=== PATIENT | male | born 1970 | race Caucasian/White ===

== ENCOUNTER 2017-02-06 20:21 | Emergency (ER) | payer BC ==
--- NOTE | 2017-02-06 23:07 | ED NURSING NOTES ---
Clinical Report - Nurses Formerly [facility] [address] [place] [address] 02/06/2017 20:24 Patient: LAURO YOUNG TRIAGE Triage time 20:49. Acuity: LEVEL 4. Chief Complaint: INJURY TO LEFT HAND. INJURY TO THE LEFT THUMB (Cut L thumb with knife.). Alert. No acute distress. SEPSIS SCREEN: Sepsis Screen: negative. Negative (no infection suspected/documented). --20:54 Cisco Darling R.N. 20:48 02/06/17. BP: 116/80 (regular adult cuff) taken on the left arm, via an automated monitor, while sitting. HR: 63 (normal rate). RR: 16 (regular, unlabored and normal). O2 saturation: 97% on room air. Temp: 98.5 F (oral). Pain level now: 0/10. --20:54 Cisco Darling R.N. Weight: 122.4 kg stated. Height/Length: 71 inches Per Patient. BMI: 37.7. --20:48 Cisco Darling R.N. Medications Atenolol Oral. --20:50 Cisco Darling R.N. Triamterene-HCTZ Oral. --20:50 Cisco Darling R.N. Aspirin Oral. --20:50 Cisco Darling R.N. Losartan Potassium Oral. --20:50 Cisco Darling R.N. Potassium Oral. --20:50 Cisco Darling R.N. Ranitidine HCl Oral. --20:50 Cisco Darling R.N. Multivitamins Oral. --20:50 Cisco Darling R.N. Medication/allergy information source: the patient. --20:54 Cisco Darling R.N. Allergies LIsinopril. --20:50 Cisco Darling R.N. Bee stings. --20:50 Cisco Darling R.N. History Arrived by private vehicle. Historian: patient. Accompanied by son. Primary physician (Katia Coto DO). The patient sustained a laceration from a knife. Treatment OPERATING ROOM SCHEDULER: Applied bandage. PAST MEDICAL HX: Tetanus status: unknown. SOCIAL HX: Never smoker. No alcohol use or drug use. He has not traveled outside the [place] The patient was not exposed to MRSA. ABUSE ASSESSMENT: Abuse assessment: The patient was asked "Do you feel safe in your home?" and "Has anyone hurt you or threatened to hurt you?". No report of abuse. SELF HARM ASSESSMENT: A self harm assessment was performed. The patient answered "no" to the question "Do you have thoughts of harming or killing yourself?" and "Have you recently had thoughts about harming or killing others?". FALL RISK ASSESSMENT: Fall risk assessment completed. No fall risk identified. NUTRITIONAL RISK ASSESSMENT: The nutritional risk assessment revealed no deficiencies. LEARNING NEEDS ASSESSMENT: The learning needs assessment revealed no barriers. FUNCTIONAL ASSESSMENT: Functional assessment performed: wears glasses- this visual impairment is an ongoing problem. SKIN INTEGRITY ASSESSMENT: Skin integrity risk assessment completed. No skin integrity risk identified. --20:54 Cisco Darling R.N. PROBLEMS: Hypertension. --20:51 Cisco Darling R.N. ADDITIONAL SURGERIES: Bowel Resection . Hernia Repair. Laminectomy. Meniscus Repair. --20:51 Cisco Darling R.N. Assessment GENERAL / NEURO / PSYCH: Alert. Oriented X 4. Appears in no acute distress. Hamilton Coma Scale: 15- eyes open spontaneously (4); best verbal response- oriented x 4 (5); best motor response- obeys commands (6). Patient appears calm and cooperative. RESPIRATORY: No respiratory distress. Respirations not labored. SKIN: Skin is warm and dry. --20:54 Cisco Darling R.N. Interventions ID band on patient. To waiting room. --20:54 Cisco Darling R.N. PHYSICAL ASSESSMENT 21:58 02/06/17. Ambulatory to room. GENERAL / NEURO / PSYCH: Oriented X 4. Alert. Appears in no acute distress. EXTREMITIES: Capillary refill is less than 2 seconds in the extremities. Extremity pulses are within normal limits. Extremities exhibit normal ROM. Left thumb: tenderness and subcutaneous 1.0 cm laceration with controlled bleeding. SKIN: Skin is warm and dry. --21:58 Latrice Thacker R.N. NURSING PROGRESS NOTES 21:59 02/06/17. Two patient identifiers checked. Call light placed in reach. Side rails up x 1. Bed placed in lowest position. Brakes of bed on. Patient ready for evaluation- chart flagged and notification provided. --21:59 Latrice Thacker R.N. 22:06 02/06/2017 LET Topical Topical Solution 1 application. Placed on a cotton ball and secured with tape. Allergies verified and confirmed 5 rights. --22:06 Latrice Thacker R.N. Wound cleansed with sterile water. --22:09 Latrice Thacker R.N. 22:56 02/06/2017 TDAP IM 0.5 mL given. (Lot#: [id number], expiration date: 01/27/2019, Respiratory Physician: sanofi pasteur). Given in the right deltoid. Allergies verified and confirmed 5 rights. Vaccine information statement provided to the patient. --23:06 Latrice Thacker R.N. 11:00. Applied dressing, following the application of antibiotic ointment (bacitracin). Secured with tube gauze (metal splint placed over gauze dressing.). --23:22 Latrice Thacker R.N. 23:05 02/06/2017 LET Topical Response: no adverse reaction. 02/06/2017 22:57 BP: 124/75. HR: 57. RR: 18. O2 saturation: 97%. Temp: 98.1 F. Pain level now: 0/10. --23:23 Latrice Thacker R.N. DISPOSITION / DISCHARGE Condition at departure: stable. The goals identified in the patient's plan of care were met. No learning barriers present. Discharge instructions provided and reviewed with the patient. Patient verbalized understanding. Written instructions provided in Georgian. ( Lauro verbalizes understanding of al d/c instructions including need to f/u with PCP for stitch removal and wound care. He has no questions and voices no concerns at this time.). The patient was discharged by the physician. He was discharged home and accompanied by family. He left the Emergency Department ambulatory and via private vehicle. Patient driving. ELIAS COMA SCORE: Elias Coma Scale: 15- eyes open spontaneously (4); best verbal response- oriented x 4 (5); best motor response- obeys commands (6). --22:59 Cisco Darling R.N. 22:57 02/06/17. BP: 124/75 (regular adult cuff) taken on the right arm, via an automated monitor, while lying. HR: 57 (bradycardic). RR: 18 (regular, unlabored and normal). O2 saturation: 97% on room air. Temp: 98.1 F (oral). Pain level now: 0/10. --22:59 Cisco Darling R.N. Departure time: 11:06. --23:07 Latrice Thacker R.N. Locked/Released at 02/06/2017 23:23 by Latrice Thacker R.N.
--- NOTE | 2017-02-06 23:07 | ED CLINICAL REPORT ---
Clinical Report - Physicians/Mid Levels [facility] [address] [place] [address] 02/06/2017 20:24 Patient: LAURO YOUNG Time Seen: 22:31 Feb 06 2017. Arrived- By private vehicle. Historian- patient. CPT: ER phys charges level 3 plus (#[id number]). Up to 2.5 cm simple scalp, neck (#[id number]). HISTORY OF PRESENT ILLNESS Chief Complaint: Injury to the hand and left thumb. The injury happened just prior to arrival. The patient sustained a laceration from a knife. Occurred at home. Patient is experiencing mild pain. No other injury. REVIEW OF SYSTEMS The patient sustained a laceration. No swelling, tingling, numbness or foreign body. All systems otherwise negative, except as recorded above. PAST HISTORY Bowel Resection . Hernia Repair. Laminectomy. Meniscus Repair. Tetanus immunization status is unknown. SOCIAL HISTORY Never smoker. No alcohol use or drug use. ADDITIONAL NOTES The nursing notes have been reviewed. PHYSICAL EXAM Vital Signs: 02/06/2017 20:48 BP: 116/80. HR: 63. RR: 16. O2 saturation: 97%. Temp: 98.5 F. Pain level now: 0/10. Skin: Skin warm and dry. Extremities: Left thumb: mild tenderness and subcutaneous laceration- SEE LACERATION PROCEDURE NOTE. Neurovascular intact distally. No limitation in movement. No wrist injury. Extremities otherwise negative. Neuro, Vascular and Tendons: Vascular status intact. Sensation intact. Motor intact. Tendon function intact. No functional tendon deficit or tendon injury seen. Neuro: Oriented X 3. No motor deficit. No sensory deficit. PROGRESS AND PROCEDURES Laceration Repair: Location: left thumb. Length: 2 cm. Complexity: simple (local anesthesia used and sutured). Wound depth/shape- subcutaneous and linear. Wound is clean. Distal neuro/vascular/tendon status normal. Tendon examined. Anesthesia provided using 2% lidocaine with bicarb. Prepped with Hibiclens. Wound explored, cleansed, irrigated and examined to the base in bloodless field extensively. Closure of skin: interrupted 4-0 (5 sutures). Post-procedure: he is stable and there are no complications. Bleeding is controlled and neuro-vascular status is intact distal to the wound. Dressing applied. Tetanus immunization given. Estimated blood loss: 1 mL. Patient/family counseled. Disposition: Discharged. Condition: stable and improved. CLINICAL IMPRESSION Single deep laceration to the left thumb.No foreign body present or left fingernail injury. INSTRUCTIONS Protect wound and keep wound area clean. Change dressing twice daily. Keep wounds dry. You may wash wounds briefly, then dry. Apply neosporin twice daily. Sutures should be removed in ten days. Limit use of your right hand until released. Warnings: TETANUS: You were given a tetanus shot during your visit. Make a note for future reference. GENERAL WARNINGS: Return or contact your physician immediately if your condition worsens or changes unexpectedly, if not improving as expected, or if other problems arise. Your Current Medications: CONTINUE TAKING THE FOLLOWING MEDICATIONS: Aspirin Oral. Atenolol Oral. Losartan Potassium Oral. Multivitamins Oral. Potassium Oral. Ranitidine HCl Oral. Triamterene-HCTZ Oral. OTC Medications: Acetaminophen (available over the counter): take according to label instructions. Follow-up: Follow up with your doctor in ten days. Call for an appointment. Understanding of the discharge instructions verbalized by patient. (Electronically signed by Magdy Diaz MD 02/09/2017 23:21)
--- NOTE | 2017-02-06 23:07 | ED CLINICAL REPORT ---
Clinical Report - Physicians/Mid Levels [facility] [address] [place] [address] 02/06/2017 20:24 Patient: LAURO YOUNG Time Seen: 22:31 Feb 06 2017. Arrived- By private vehicle. Historian- patient. CPT: ER phys charges level 3 plus (#[id number]). Up to 2.5 cm simple scalp, neck (#[id number]). HISTORY OF PRESENT ILLNESS Chief Complaint: Injury to the hand and left thumb. The injury happened just prior to arrival. The patient sustained a laceration from a knife. Occurred at home. Patient is experiencing mild pain. No other injury. REVIEW OF SYSTEMS The patient sustained a laceration. No swelling, tingling, numbness or foreign body. All systems otherwise negative, except as recorded above. PAST HISTORY Bowel Resection . Hernia Repair. Laminectomy. Meniscus Repair. Tetanus immunization status is unknown. SOCIAL HISTORY Never smoker. No alcohol use or drug use. ADDITIONAL NOTES The nursing notes have been reviewed. PHYSICAL EXAM Vital Signs: 02/06/2017 20:48 BP: 116/80. HR: 63. RR: 16. O2 saturation: 97%. Temp: 98.5 F. Pain level now: 0/10. Skin: Skin warm and dry. Extremities: Left thumb: mild tenderness and subcutaneous laceration- SEE LACERATION PROCEDURE NOTE. Neurovascular intact distally. No limitation in movement. No wrist injury. Extremities otherwise negative. Neuro, Vascular and Tendons: Vascular status intact. Sensation intact. Motor intact. Tendon function intact. No functional tendon deficit or tendon injury seen. Neuro: Oriented X 3. No motor deficit. No sensory deficit. PROGRESS AND PROCEDURES Laceration Repair: Location: left thumb. Length: 2 cm. Complexity: simple (local anesthesia used and sutured). Wound depth/shape- subcutaneous and linear. Wound is clean. Distal neuro/vascular/tendon status normal. Tendon examined. Anesthesia provided using 2% lidocaine with bicarb. Prepped with Hibiclens. Wound explored, cleansed, irrigated and examined to the base in bloodless field extensively. Closure of skin: interrupted 4-0 (5 sutures). Post-procedure: he is stable and there are no complications. Bleeding is controlled and neuro-vascular status is intact distal to the wound. Dressing applied. Tetanus immunization given. Estimated blood loss: 1 mL. Patient/family counseled. Disposition: Discharged. Condition: stable and improved. CLINICAL IMPRESSION Single deep laceration to the left thumb.No foreign body present or left fingernail injury. INSTRUCTIONS Protect wound and keep wound area clean. Change dressing twice daily. Keep wounds dry. You may wash wounds briefly, then dry. Apply neosporin twice daily. Sutures should be removed in ten days. Limit use of your right hand until released. Warnings: TETANUS: You were given a tetanus shot during your visit. Make a note for future reference. GENERAL WARNINGS: Return or contact your physician immediately if your condition worsens or changes unexpectedly, if not improving as expected, or if other problems arise. Your Current Medications: CONTINUE TAKING THE FOLLOWING MEDICATIONS: Aspirin Oral. Atenolol Oral. Losartan Potassium Oral. Multivitamins Oral. Potassium Oral. Ranitidine HCl Oral. Triamterene-HCTZ Oral. OTC Medications: Acetaminophen (available over the counter): take according to label instructions. Follow-up: Follow up with your doctor in ten days. Call for an appointment. Understanding of the discharge instructions verbalized by patient. (Electronically signed by Magdy Diaz MD 02/09/2017 23:21)
--- NOTE | 2017-02-06 23:08 | ED ORDER SUMMARY ---
..... Patient: LAURO YOUNG OrderSheet [facility] VisitID: [id number] [address] [place] [address] 46y, M Registration Date/Time: 02/06/2017 ORDER SHEET Weight: 122.4 kg (stated) Allergies: LIsinopril, Bee stings GENERAL ORDERS: Splint (UE) (Left) (Metal / foam) (thumb) (22:49 02/06/2017 Joi ZAPATA) (23:06 RMarsden R.N.) Dress Wounds (22:49 02/06/2017 Joi ZAPATA) (23:06 RMarssterling R.N.) MEDICATION ORDERS: LET Topical 1 application (NOW) (22:03 02/06/2017 RMarsden R.N. per protocol) (Ack 22:03 RMarsden R.N.) (22:06 RMarsden R.N.) Tdap IM 0.5 mL (per protocol) (22:49 02/06/2017 Joi ZAPATA) (Ack 22:53 Chai-Beto R.N.) (23:06 RMarsden R.N.) IV FLUIDS: ORDER SHEET NOTES: [Electronically signed by Latrice Thacker R.N. (23:23 02/06/2017)] [Electronically signed by Magdy Diaz MD (23:21 02/09/2017)] [Electronically locked/signed by Latrice Thacker R.N. (23:23 02/06/2017)]
--- NOTE | 2017-02-06 23:08 | ED ORDER SUMMARY ---
..... Patient: LAURO YOUNG OrderSheet [facility] VisitID: [id number] [address] [place] [address] 46y, M Registration Date/Time: 02/06/2017 ORDER SHEET Weight: 122.4 kg (stated) Allergies: LIsinopril, Bee stings GENERAL ORDERS: Splint (UE) (Left) (Metal / foam) (thumb) (22:49 02/06/2017 Joi ZAPATA) (23:06 RMarsden R.N.) Dress Wounds (22:49 02/06/2017 Joi ZAPATA) (23:06 RMarssterling R.N.) MEDICATION ORDERS: LET Topical 1 application (NOW) (22:03 02/06/2017 RMarsden R.N. per protocol) (Ack 22:03 RMarsden R.N.) (22:06 RMarsden R.N.) Tdap IM 0.5 mL (per protocol) (22:49 02/06/2017 Joi ZAPATA) (Ack 22:53 Chai-Beto R.N.) (23:06 RMarsden R.N.) IV FLUIDS: ORDER SHEET NOTES: [Electronically signed by Latrice Thacker R.N. (23:23 02/06/2017)] [Electronically signed by Magdy Diaz MD (23:21 02/09/2017)] [Electronically locked/signed by Latrice Thacker R.N. (23:23 02/06/2017)]
--- NOTE | 2017-02-09 23:21 | ED MAR SUMMARY ---
..... Medication Administration Record [facility] [address] [place] [address] Patient: LAURO YOUNG Visit ID: [id number] 46y, M Weight: 122.4 kg Height/Length: 71 in BMI: 37.7 ALLERGIES: Bee stings, LIsinopril Given 22:06 02/06/2017 Latrice Thacker, R.N. Medication Administered: LET [TOPICAL], Dose: 1 application Topical Solution Topical. Medication Ordered: LET Topical 1 application (NOW). Given 22:56 02/06/2017 Latrice Thacker, R.N. Medication Administered: TDAP [IM], Dose: 0.5 mL IM. Medication Ordered: Tdap IM 0.5 mL (per protocol).
--- NOTE | 2017-02-09 23:21 | ED MAR SUMMARY ---
..... Medication Administration Record [facility] [address] [place] [address] Patient: LAURO YOUNG Visit ID: [id number] 46y, M Weight: 122.4 kg Height/Length: 71 in BMI: 37.7 ALLERGIES: Bee stings, LIsinopril Given 22:06 02/06/2017 Latrice Thacker, R.N. Medication Administered: LET [TOPICAL], Dose: 1 application Topical Solution Topical. Medication Ordered: LET Topical 1 application (NOW). Given 22:56 02/06/2017 Latrice Thacker, R.N. Medication Administered: TDAP [IM], Dose: 0.5 mL IM. Medication Ordered: Tdap IM 0.5 mL (per protocol).
--- NOTE | 2017-02-09 23:21 | ED MED RECONCILIATION SUMMARY ---
Patient: LAURO YOUNG Medication Reconciliation Report [facility] VisitID: [id number] [address] [place] [address] 46y, M Registration Date/Time: 02/06/2017 Weight: 122.4 kg Height/Length: 71 in. BMI: 37.7 ALLERGIES: Bee stings, LIsinopril The patient's Home Medications are listed below: CONTINUE TAKING THE FOLLOWING MEDICATIONS: Aspirin Oral Atenolol Oral Losartan Potassium Oral Multivitamins Oral Potassium Oral Ranitidine HCl Oral Triamterene-HCTZ Oral The source(s) of the original Home Medication information: patient The following Medications were given to the patient in the Emergency Department: LET [Topical] Topical 1 application, administered: 02/06/2017 10:06:00 PM TDAP [IM] IM 0.5 mL, administered: 02/06/2017 10:56:00 PM The following Medications were prescribed to the patient: Acetaminophen (available over the counter): take according to label instructions. -- Magdy Diaz MD
--- NOTE | 2017-02-09 23:21 | ED DISCHARGE INSTRUCTIONS ---
Patient: LAURO YOUNG General Instructions [facility] VisitID: [id number] [place] [address] 46y, M Registration Date/Time: 02/06/2017 Single deep laceration to the left thumb.No foreign body present or left fingernail injury. INSTRUCTIONS Protect wound and keep wound area clean. Change dressing twice daily. Keep wounds dry. You may wash wounds briefly, then dry. Apply neosporin twice daily. Sutures should be removed in ten days. Limit use of your right hand until released. Warnings: TETANUS: You were given a tetanus shot during your visit. Make a note for future reference. GENERAL WARNINGS: Return or contact your physician immediately if your condition worsens or changes unexpectedly, if not improving as expected, or if other problems arise. Your Current Medications: CONTINUE TAKING THE FOLLOWING MEDICATIONS: Aspirin Oral. Atenolol Oral. Losartan Potassium Oral. Multivitamins Oral. Potassium Oral. Ranitidine HCl Oral. Triamterene-HCTZ Oral. OTC Medications: Acetaminophen (available over the counter): take according to label instructions. Follow-up: Follow up with your doctor in ten days. Call for an appointment. Understanding of the discharge instructions verbalized by patient. ADDITIONAL INFORMATION Laceration (All Closures) Alaceration is a cut through the skin. This will usually require stitches (sutures) or javi if it is deep. Minor cuts may be treated with a surgical tape closure orskin glue. Home care The following guidelines will help you care for your laceration at home: Extremity, face, or trunk wounds Keep the wound clean and dry. If a bandage was applied and it becomes wet or dirty, replace it. Otherwise, leave it in place for the first 24 hours. If stitches or javi were used, clean the wound daily. After removing the bandage, wash the area with soap and water. Use a wet cotton swab to loosen and remove any blood or crust that forms. The doctor may prescribe an antibiotic cream or ointment to prevent infection. Do not stop taking this medication until you have finished the prescribed course or the doctor tells you to stop. The doctor may also prescribe medications for pain. Follow the doctors instructions for taking these medications. You may remove the bandage to shower as usual after the first 24 hours, but do not soak the area in water (no swimming) until the stitches or javi are removed. If surgical tape was used, keep the area clean and dry. If it becomes wet, blot it dry with a towel. If skin glue was used, do not scratch, rub, or pick at the adhesive film. Do not place tape directly over the film. Do not apply liquid, ointment, or creams to the wound while the film is in place. Do not clean the wound with peroxide and do not apply ointments. Avoid activities that cause heavy sweating until the film has fallen off. Protect the wound from prolonged exposure to sunlight or tanning lamps. You may shower as usual but do not soak the wound in water (no baths or swimming). The film will fall off by itself in 510 days. Scalp wounds During the first two days, you may carefully rinse your hair in the shower to remove blood, glass or dirt particles. After two days, you may shower and shampoo your hair normally. Do not soak your scalp in the tub or go swimming until the stitches or javi have been removed. Talk with your doctor before applying any antibiotic ointment to the wound. Mouth wounds Eat soft foods to reduce pain. If the cut is inside of your mouth, clean by rinsing after each meal and at bedtime with a mixture of equal parts water and hydrogen peroxide (do not swallow!). Or, you can use a cotton swab to directly apply hydrogen peroxide onto the cut. Mouth wounds can be painful when eating. You may use an [id number] local numbing solution for pain relief. If this is not available, you may use any numbing solution for teething babies. You may apply this directly to the sores with a cotton-tip swab or with your finger. Follow-up care Follow up with your health care provider. Most skin wounds heal within ten days. Mouth and facial wounds heal within five days. However, even with proper treatment, a wound infection may sometimes occur. Therefore, you should check the wound daily for signs of infection listed below. Stitches should be removed from the face within five days; stitches and javi should be removed from other parts of the body within 714 days. If dissolving stitches were used in the mouth, these will fall out or dissolve without the need for removal. If tape closures were used, remove them yourself if they have not fallen off after 7 days. Ifskin glue was used, the film will fall off by itself in 510 days. When to seek medical care Get prompt medical attention if any of these occur: Bleeding not controlled by direct pressure Signs of infection, including increasing pain in the wound, increasing wound redness or swelling, or pus coming from the wound Fever of 100.4F (38C) or higher, or as directed by your health care provider Stitches or javi come apart or fall out or surgical tape falls off before 7 days Wound edges re-open Laceration, Extremity (Sutures, [place], Or Tape) A laceration is a cut through the skin. This will usually require stitches (sutures) or javi if it is deep. Minor cuts may be treated with surgical tape closures. Home care The following guidelines will help you care for your laceration at home: Keep the wound clean and dry. If a bandage was applied and it becomes wet or dirty, replace it. Otherwise, leave it in place for the first 24 hours, then change it once a day or as directed. If stitches or javi were used, clean the wound daily: After removing the bandage, wash the area with soap and water. Use a wet cotton swab to loosen and remove any blood or crust that forms. After cleaning, keep the wound clean and dry. Talk with your doctor before applying any antibiotic ointment to the wound. Reapply the bandage. You may remove the bandage to shower as usual after the first 24 hours, but do not soak the area in water (no swimming) until the stitches or javi are removed. If surgical tape closures were used, keep the area clean and dry. If it becomes wet, blot it dry with a towel. The doctor may prescribe an antibiotic cream or ointment to prevent infection. Do not stop taking this medication until you have finished the prescribed course or the doctor tells you to stop. The doctor may also prescribe medications for pain. Follow the doctors instructions for taking these medications. If you have chronic liver or kidney disease or ever had a stomach ulcer or GI bleeding, talk with your doctor before using these medicines. Follow-up care Follow up with your health care provider. Most skin wounds heal within ten days. However, an infection may sometimes occur despite proper treatment. Therefore, check the wound daily for the signs of infection listed below. Stitches and javi should be removed within 714 days. If surgical tape closures were used, you may remove them after 10 days, if they have not fallen off by then. Notify your doctor if you notice persistent numbness or weakness in the injured extremity. (Note:A radiologist will review any X-rays that were taken. We will notify you of any new findings that may affect your care.) When to seek medical care Get prompt medical attention if any of these occur: Increasing pain in the wound Redness, swelling, or pus coming from the wound Fever of 100.4F (38C) or higher, or as directed by your health care provider If stitches or javi come apart or fall out before your next appointment If the surgical tape closures fall off within seven days, or the wound edges re-open Bleeding not controlled by direct pressure Laceration, Extremity (Sutures, Javi, Or Tape) A laceration is a cut through the skin. This will usually require stitches (sutures) or javi if it is deep. Minor cuts may be treated with surgical tape closures. Home care The following guidelines will help you care for your laceration at home: Keep the wound clean and dry. If a bandage was applied and it becomes wet or dirty, replace it. Otherwise, leave it in place for the first 24 hours, then change it once a day or as directed. If stitches or javi were used, clean the wound daily: After removing the bandage, wash the area with soap and water. Use a wet cotton swab to loosen and remove any blood or crust that forms. After cleaning, keep the wound clean and dry. Talk with your doctor before applying any antibiotic ointment to the wound. Reapply the bandage. You may remove the bandage to shower as usual after the first 24 hours, but do not soak the area in water (no swimming) until the stitches or javi are removed. If surgical tape closures were used, keep the area clean and dry. If it becomes wet, blot it dry with a towel. The doctor may prescribe an antibiotic cream or ointment to prevent infection. Do not stop taking this medication until you have finished the prescribed course or the doctor tells you to stop. The doctor may also prescribe medications for pain. Follow the doctors instructions for taking these medications. If you have chronic liver or kidney disease or ever had a stomach ulcer or GI bleeding, talk with your doctor before using these medicines. Follow-up care Follow up with your health care provider. Most skin wounds heal within ten days. However, an infection may sometimes occur despite proper treatment. Therefore, check the wound daily for the signs of infection listed below. Stitches and javi should be removed within 714 days. If surgical tape closures were used, you may remove them after 10 days, if they have not fallen off by then. Notify your doctor if you notice persistent numbness or weakness in the injured extremity. (Note:A radiologist will review any X-rays that were taken. We will notify you of any new findings that may affect your care.) When to seek medical care Get prompt medical attention if any of these occur: Increasing pain in the wound Redness, swelling, or pus coming from the wound Fever of 100.4F (38C) or higher, or as directed by your health care provider If stitches or javi come apart or fall out before your next appointment If the surgical tape closures fall off within seven days, or the wound edges re-open Bleeding not controlled by direct pressure You have been given the following additional information: Laceration, All Laceration, Extrem (Suture, Staple, Or Tape) Laceration, Extrem (Suture, Staple, Or Tape) Limit use of your right hand until released. (Electronically signed by Magdy Diaz MD 02/09/2017 23:21)
--- NOTE | 2017-02-09 23:21 | ED MED RECONCILIATION SUMMARY ---
Patient: LAURO YOUNG Medication Reconciliation Report [facility] VisitID: [id number] [place] [address] 46y, M Registration Date/Time: 02/06/2017 Weight: 122.4 kg Height/Length: 71 in. BMI: 37.7 ALLERGIES: Bee stings, LIsinopril The patient's Home Medications are listed below: CONTINUE TAKING THE FOLLOWING MEDICATIONS: Aspirin Oral Atenolol Oral Losartan Potassium Oral Multivitamins Oral Potassium Oral Ranitidine HCl Oral Triamterene-HCTZ Oral The source(s) of the original Home Medication information: patient The following Medications were given to the patient in the Emergency Department: LET [Topical] Topical 1 application, administered: 02/06/2017 10:06:00 PM TDAP [IM] IM 0.5 mL, administered: 02/06/2017 10:56:00 PM The following Medications were prescribed to the patient: Acetaminophen (available over the counter): take according to label instructions. -- Magdy Diaz MD
== END 2017-02-06 23:06 | disposition home or self-care (01) ==
LOC: ED SRH 20:21
DX: S61.012A Laceration without foreign body of left thumb without damage to nail, initial encounter (principal); W26.0XXA Contact with knife, initial encounter; Y93.9 Activity, unspecified; Y92.019 Unspecified place in single-family (private) house as the place of occurrence of the external cause; Y99.9 Unspecified external cause status; I10 Essential (primary) hypertension; Z79.82 Long term (current) use of aspirin; Z79.899 Other long term (current) drug therapy; Z91.030 Bee allergy status; Z88.8 Allergy status to other drugs, medicaments and biological substances